=== PATIENT | male | born 1960 | race Caucasian/White ===

== ENCOUNTER 2021-09-08 13:15 | Emergency (ER) | payer BC, SELFPAY ==
[2021-09-08 14:42] VITALS: BP 175/89; PULSE 88; RESP 16; TEMP 37.3; O2SAT 88; BMI 36.9
--- NOTE | 2021-09-08 15:39 | HMH.EDUTC ---
[facility] [place] [facility] Disposition Clinical Impression: Acute bronchitis Qualifiers: Bronchitis organism: unspecified organism Qualified Code(s): J20.9 - Acute bronchitis, unspecified Sinusitis Qualifiers: Sinusitis location: unspecified location Chronicity: acute Recurrence: non-recurrent Qualified Code(s): J01.90 - Acute sinusitis, unspecified Disposition: Home, Self-Care Condition on Discharge: Good Instructions: DI for Sinusitis, DI for Acute Bronchitis Additional Instructions: Drink plenty of fluids. Take tylenol or ibuprofen for pain or fever. Take the medications as directed. Follow up with your regular doctor. GO TO THE ER FOR ANY WORSENING SYMPTOMS Quarantine until you know the results of your covid-19 test. If it is positive, the health department should call you and give you further instructions about your length of Quarantine and other things. Notify your school or workplace of your results and follow their instructions regarding return to work/school. Don't start the oral steroids until tomorrow, since you had the shot here today. The cough medication (promethazine dm) will make you drowsy, so don't drive or operate heavy machinery after taking it. Prescriptions: Amoxicillin/Potassium Clav [Augmentin 875-125 Tablet] 1 tab PO Q12H 10 Days #20 tab Transmission Status: Received by [facility] #[id number] methylPREDNISolone [Medrol] 4 mg PO DIRECTED 6 Days #21 packet Transmission Status: Received by [facility] #[id number] guaiFENesin [Mucinex 600mg tablet] 1 - 2 tab PO BIDP PRN #30 tab PRN Reason: Congestion Transmission Status: Received by [facility] #[id number] Referrals: Fracisco Mcclelland [Primary Care Provider] - Time of Disposition: 16:02 Medical Decision Making - Medical Records Medical records reviewed: No: I reviewed the patient's medical records. - Tomi Inquiry Pt receiving controlled substance: No Vital Signs: 09/08/21 14:42 09/08/21 16:19 Temperature 99.1 F 99.1 F Temperature Source Oral Pulse Rate 88 Pulse Rate [Left] 88 Respiratory Rate 16 16 Blood Pressure 175/89 H Blood Pressure [Right Arm] 175/89 H Blood Pressure Mean [Right Arm] 117 02 Sat by Pulse Oximetry 88 L - Lab Data Lab results reviewed: Yes: I reviewed the patient's lab results. Orders (Tests/Meds): ED MEDICATIONS Discontinued Medications Generic Name Dose Route Start Last Admin Trade Name Jagdeep PRN Reason Stop Dose Admin Ceftriaxone Sodium 1 gm 09/08/21 15:41 09/08/21 16:03 Ceftriaxone 1gm Vial IM 09/08/21 15:42 1 gm ONCE ONE Administration Lidocaine HCl 0 ml 09/08/21 15:41 09/08/21 16:02 Lidocaine 1% 5ml Pf Vial IM 09/08/21 15:42 2 ml ONCE ONE Administration Methylprednisolone Sodium Succinate 125 mg 09/08/21 15:41 09/08/21 16:02 Methylprednisolone Sod Succ 125mg Vial IM 09/08/21 15:42 125 mg ONCE ONE Administration [facility] [place] [facility] HPI - General Stated complaint: cough up pleum,fever Time Seen by Provider: 09/08/21 15:39 Mode of Arrival: Ambulatory Source of Information: Patient Limitations: No Limitations Description of Symptoms (Recalled from Triage Doc. by RN): pt c/o cough, congestion, sore throat, fever and chills x2 days. HEENT Symptoms (Recalled from RN notes): Yes (congestion and sore throat) Resp Symptoms (Recalled from RN notes): Yes (cough) Skin Symptoms (Recalled from RN notes): No MS Symptoms (Recalled from RN notes): No Functional Status (Recalled from RN notes): wnl - History of Present Illness Provider Complaint: He states that for the past week he has had a worsening cough, chest congestion. He has began to run a fever over the past 2 days. - Related Data Previous Rx's Medication Instructions Recorded Amoxicillin/Potassium Clav 1 tab PO Q12H 10 Days #20 tab 09/08/21 [Augmentin 875-125 Tablet] guaiFENesin [Mucinex 600mg tablet] 1 - 2 tab PO BIDP PRN #30 tab 09/08/21 methylPREDNISolone [Medrol] 4 mg PO DIRECTED
[2021-09-08 16:19] VITALS: BP 175/89; PULSE 88; RESP 16; TEMP 37.3
--- NOTE | 2021-09-09 09:12 | PC.NURSE ---
informed patient that he was positive
== END 2021-09-08 16:21 | disposition home or self-care (01) ==
LOC: UTC 13:22
PROVIDERS: Emergency Provider Nurse Practitioner Family; PCP Family Medicine
DX: U07.1 COVID-19 (principal); J01.90 Acute sinusitis, unspecified; J20.9 Acute bronchitis, unspecified
CPT/HCPCS: 87880; 96372; 99202; C9803; G0463; U0003; U0005